=== PATIENT | female | born 1950 | race Hispanic/Latino ===

== ENCOUNTER → 2021-09-05 | Outpatient (CLI) | payer OTHER | END | disposition home or self-care (01) | LOC: RAH 10:00 | PROVIDERS: ATTEND Internal Medicine | DX: N02.9 Recurrent and persistent hematuria with unspecified morphologic changes (principal) | CPT/HCPCS: 76770 ==

== ENCOUNTER → 2022-06-10 | Outpatient (CLI) | payer OTHER | END | disposition home or self-care (01) | LOC: RAH 07:46 | PROVIDERS: ATTEND Family Medicine | DX: M79.9 Soft tissue disorder, unspecified (principal) | CPT/HCPCS: 73200 ==

== ENCOUNTER → 2022-08-27 | Outpatient (CLI) | payer OTHER | END | disposition home or self-care (01) | LOC: RAH 13:05 | PROVIDERS: ATTEND Family Medicine | DX: J32.9 Chronic sinusitis, unspecified (principal) | CPT/HCPCS: 70486 ==

== ENCOUNTER → 2024-01-16 | Outpatient (CLI) | payer OTHER | END | disposition home or self-care (01) | LOC: RAH 09:04 | PROVIDERS: ATTEND Family Medicine | DX: I67.82 Cerebral ischemia (principal); R90.82 White matter disease, unspecified; R42 Dizziness and giddiness | CPT/HCPCS: 70551 ==

== ENCOUNTER → 2025-03-04 | Outpatient (CLI) | payer OTHER ==
--- NOTE | 2025-03-06 19:57 | HMCIMG ---
EXAM: MR Cervical Spine Without Intravenous Contrast. CLINICAL HISTORY: Headache. TECHNIQUE: Magnetic resonance images of the cervical spine in multiple planes. CONTRAST: None. COMPARISON: None. FINDINGS: The imaged posterior fossa is unremarkable. The craniocervical junction is intact. No acute fracture. Mild straightening of the expected cervical lordosis reflects paraspinal muscle spasm. Multilevel spondylosis is evident by marginal osteophytes and facet joint arthropathy. Multilevel disc desiccation noted. Mild to moderate degenerative disc height reduction at the C5-C6 and C6-C7 levels. Normal vertebral body and remaining disc heights. Modic type I changes in the contiguous endplates at the C6-C7 level. The cervical cord is in an anatomic location. No abnormal signal involves the cord. No extra-axial masses. The surrounding soft tissues are unremarkable. Level by level disease is present as follows: C1-C2: No osteoarthritis. C2-C3: No disc bulge or herniation. No neural foraminal, lateral recess or spinal canal stenosis. C3-C4: No disc bulge or herniation. No neural foraminal, lateral recess or spinal canal stenosis. C4-C5: 1 mm disc osteophyte complex bulge causing mild indentation on the anterior thecal sac. No neural foraminal or lateral recess stenosis. C5-C6: 2 mm disc osteophyte complex bulge causing mild indentation on the anterior thecal sac. No neural foraminal or lateral recess stenosis. C6-C7: 1 mm disc osteophyte complex bulge causing mild indentation on the anterior thecal sac and mild to moderate right foraminal narrowing. No lateral recess stenosis. C7-T1: No disc bulge or herniation. No neural foraminal, lateral recess or spinal canal stenosis. IMPRESSION: Mild straightening of the expected cervical lordosis reflects paraspinal muscle spasm. Mild multilevel spondylosis. Mild to moderate degenerative disc height reduction at the C5-C6 and C6-C7 levels. Modic type I changes in the contiguous endplates at the C6-C7 level. Mild indentation on the anterior thecal sac at the C4-C5 and C5-C6 levels. Mild indentation on the anterior thecal sac and mild to moderate right foraminal narrowing at the C6-C7 level. /[place]
== END | disposition home or self-care (01) ==
LOC: RAH 13:20
PROVIDERS: ATTEND Psychiatry & Neurology Neurology
DX: M47.812 Spondylosis without myelopathy or radiculopathy, cervical region (principal); M50.321 Other cervical disc degeneration at C4-C5 level; M50.322 Other cervical disc degeneration at C5-C6 level; M50.323 Other cervical disc degeneration at C6-C7 level; M48.02 Spinal stenosis, cervical region; M53.82 Other specified dorsopathies, cervical region; M47.816 Spondylosis without myelopathy or radiculopathy, lumbar region; M25.78 Osteophyte, vertebrae; R51.9 Headache, unspecified; G89.29 Other chronic pain
CPT/HCPCS: 72141